=== PATIENT | female | born 1975 | race Caucasian/White ===

== ENCOUNTER 2017-09-05 18:31 | Inpatient (IN) | payer MEDICAID, OTHER, SELFPAY ==
[~2017-09-05 18:31] MED LIST: Dexamethasone 20 MG/5 ML VIAL ONE; Ketorolac Tromethamine 30 MG/ML VIAL ONE; Lidocaine 1% PF 5 ML VIAL ONE; Ondansetron HCl/PF 4 MG/2 ML Vial ONE; Propofol 200 MG/20 ML VIAL ONE; Succinylcholine Chloride 20 MG/ML 10 ml SYRINGE FS ONE; ePHEDrine/0.9% NaCl/PF SYRINGE 50 mg/10 ml ONE
[2017-09-05] MEDS ORDERED: Bupivacaine PF 0.5% 30 ML VIAL ONE (21:17)
[2017-09-05] MEDS ORDERED: Fentanyl 250 MCG/5 ML VIAL ONE (21:20)
[2017-09-05] MEDS ORDERED: Dextrose 50% Abboject 50 ML SYRINGE SLOW IVP PRN (22:35)
[2017-09-05] MEDS ORDERED: HYDROcodone/Acetaminophen 10/325 mg Tablet PO PRN (22:35)
[2017-09-05] MEDS ORDERED: Promethazine HCl 25 MG/ML VIAL IM PRN ×2 (22:35→22:43)
[2017-09-05] MEDS ORDERED: Dextrose 5% in Water 1,000 ML IV PRN (22:35)
[2017-09-05] MEDS ORDERED: Morphine 4 MG/ML Carpuject SLOW IVP PRN (22:35)
[2017-09-05] MEDS ORDERED: hydrALAZINE 20 MG/ML VIAL SLOW IVP PRN (22:35)
[2017-09-05] MEDS ORDERED: Ondansetron HCl/PF 4 MG/2 ML Vial IVP PRN ×2 (22:35→22:43)
[2017-09-05] MEDS ORDERED: Morphine Sulfate 2 MG/ML SYRINGE SLOW IVP PRN (22:43)
[2017-09-05] MEDS ORDERED: Meperidine HCl/PF 25 MG/ML VIAL SLOW IVP PRN (22:43)
[2017-09-05] MEDS ORDERED: HYDROmorphone 2 MG/ML VIAL SLOW IVP PRN (22:43)
[2017-09-05] MEDS ORDERED: Promethazine HCl 25 MG/ML VIAL SLOW IVP PRN (22:43)
[2017-09-05] MEDS ORDERED: HYDROmorphone 0.5 MG/0.5 ML SYRINGE ONE (22:45)
[2017-09-06] MEDS ORDERED: Fentanyl 100 MCG/2 ML VIAL ONE (00:03)
--- NOTE | 2017-09-06 01:06 | HP ---
CHIEF COMPLAINT: Right lower quadrant abdominal pain. HISTORY OF PRESENT ILLNESS: This is 42-year-old female. She reports a 1 week history of generalized abdominal pain, which became much worse last night became right-sided. It was associated with nause a and vomiting. She went to the emergency room in [place], where CT was done, they transferred her to the [facility], her CT showed acute appendicitis. No previous episodes. Her last in nstrual period two weeks ago. PAST MEDICAL HISTORY: Mastocytosis, angioedema, anaphylaxis, thyroid cancer, kidney stones. PAST SURGICAL HISTORY: She has had a total thyroidectomy, lithotripsy complicated by a pneumothorax requiring chest tube. ALLERGIES: She has no known drug allergies. MEDICATIONS: Levothyroxine. 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 Social alcohol. FAMILY HISTORY: Noncontributory. PHYSICAL EXAMINATION: VITAL SIGNS: Temperature 98.7, pulse 72, blood pressure 112/54. GENERAL: Well-developed, well-nourished female in no apparent distress. HEENT: Unremarkable, well-healed surgical scar. LUNGS: Clear. HEART: Regular rate and rhythm. ABDOMEN: Soft, very tender to percussion in right lower quadrant, positive Rovsing's. EXTREMITIES: Unremarkable. LABORATORY DATA: Her white count is 11.6, H and H 8.7 and 30, platelet count 233. HCG negative. CT scan was reviewed with the radiologist, reported to me as acute appendicitis. ASSESSMENT: Acute appendicitis. PLAN: Laparoscopic appendectomy. CONSENT: I have discussed the planned procedure as well as risk of bleeding, infection, injury to he r bowel, bladder, need to open. She understands and gives informed consent.
[2017-09-06] MEDS: D5 1/2 NS w/20 mEq KCL 1,000 ML IV SCH ×2 (01:23→12:59)
[2017-09-06] MEDS: Piperacillin/Tazobactam 3.375 GM in Sodium Chloride 0.9% 100 ML IVPB SCH ×3 (01:23→12:59)
[2017-09-06 01:56] VITALS: BMI 26.2
[2017-09-06] MEDS: HYDROcodone/Acetaminophen 10/325 mg Tablet PO PRN ×2 (03:09→13:03)
[2017-09-06 05:27] LABS: Anion Gap 9 mmol/L (10-20); BUN (Urea Nitrogen) 7 mg/dL (7.0-18.7); Calc. Creatinine Clearance 102 mL/min (70-130); Calcium 7.8 mg/dL (7.8-10.44); Carbon Dioxide 22 mmol/L (22-29); Chloride 108 mmol/L (98-107); Estimated GFR-MDRD 80
[2017-09-06 05:39] LABS: #Lymphocytes 0.3 thou/uL (1.20-3.40); #Monocytes 0.3 thou/uL (0.11-0.59); %Lymphocytes 2.8 % (21.0-51.0); %Monocytes 2.9 % (0.0-10.0); Hematocrit 28.7 % (36.0-47.0); Hypochromia SLIGHT = 6-15 cells (100X) (0-5/hpf); Mean Platelet Volume 10.8 fL (7.4-10.4); Microcytosis MODERATE=15-30 cells (100X) (0-5/hpf); Red Blood Cell (RBC) Count 3.97 mill/uL (4.20-5.40); Target Cells SLIGHT = 2-5 cells (100X) (0-1/hpf); White Blood Cell (WBC) Count 11.7 thou/uL (4.8-10.8)
[2017-09-06] MEDS ORDERED: Morphine PF 1 MG/ML SYR IV PRN (06:26)
[2017-09-06] MEDS ORDERED: Morphine 4 MG/ML VIAL SLOW IVP PRN (06:27)
--- NOTE | 2017-09-06 06:40 | OP ---
PREOPERATIVE DIAGNOSIS: Acute appendicitis. SURGEON: Flash Elias M.D. PROCEDURE PERFORMED: Laparoscopic appendectomy. INDICATIONS: A 42-year-old female with a 1 week history of vague abdominal pain became more right lo wer quadrant over the last 24 hours, associated with nausea, vomiting, leukocytosis. CT scan showed appendicitis. FINDINGS: Acute gangrenous appendicitis stuck to the right ovary. PROCEDURE: After informed consent was obtained, the patient was taken to the operating room and give n general endotracheal anesthesia. She was placed in the supine position. Her abdomen was prepped a nd draped in the usual fashion. Local anesthesia infiltrated subcutaneously and deep and a subumbili ana incision was performed. The subcu divided sharply. The fascia grasped and two stay sutures of 0 Vicryl placed to either side of midline. Midline incised. Digital palpation revealed no local adhe sions. A blunt 10/12 mm trocar inserted. Pneumoperitoneum was created to a pressure of 15 mmHg. A 0 degree laparoscope inserted. Patient placed in Trendelenburg position. Under direct vision, a 5 m m port was placed suprapubic and one on the right lateral abdomen. The appendix was found, the tip w as gangrenous and stuck to the right ovary, it was bluntly dissected away. The mesoappendix divided utilizing the LigaSure. The base of the appendix divided with a 45 mm white load stapler. It was pl aced in an Endosac and removed from the abdomen in the Endosac. Hemostasis was assured. The abdomen thoroughly irrigated and irrigation fluid removed. Trocars and retractors were removed. The fascia closed with interrupted 0 Vicryl suture. The skin closed with interrupted 4-0 Rapide. Dermabond ap plied. Patient tolerated the procedure well and transferred to recovery in good condition. Sponge a nd needle count verified correct x2.
[2017-09-06 08:26] VITALS: TEMP 97.4
[2017-09-06] MEDS ORDERED: FLU VACC QS2017-18 36 mo. & older 0.5 ML SYRINGE IM ONE (09:00)
[2017-09-06] MEDS ORDERED: Famotidine/PF 20 mg/2ml Vial SLOW IVP SCH (09:00)
[2017-09-06] MEDS ORDERED: Enoxaparin Sodium 40 MG/0.4 ML SYRINGE SC SCH (09:00)
[2017-09-06] MEDS ORDERED: Famotidine 20 MG TAB PO SCH (09:00)
[2017-09-06 12:45] VITALS: BP 108/67
--- NOTE | 2017-09-06 13:52 | DIS ---
DATE OF ADMISSION: 09/06/2017 DATE OF DISCHARGE: 09/06/2017 DISCHARGE DIAGNOSIS: Acute gangrenous appendicitis. PROCEDURES DURING ADMISSION: Laparoscopic appendectomy. HOSPITAL COURSE: The patient was admitted. She was taken to the operating room where she underwent a laparoscopic appendectomy. She was found to have a gangrenous appendix attached to her right ovary . Postoperatively, she has done well. Pain is controlled on p.o. medications. She is tolerating di et. She is discharged home in good condition on doxycycline and [place]. She will follow up with me sylwia haney 2 weeks.
== END 2017-09-06 13:39 | disposition home or self-care (01) | DRG 343 ==
LOC: ERS 18:31 → 2SW 20:21 → SDC/OP 20:29 → 2SW 09-06 01:01
PROVIDERS: ADMIT Surgery; ATTEND Surgery
PROC: 0DTJ4ZZ Resection of Appendix, Percutaneous Endoscopic Approach (ICD-10-PCS; principal; 2017-09-05)
DX: K35.80 Unspecified acute appendicitis (principal); F17.210 Nicotine dependence, cigarettes, uncomplicated; Z85.850 Personal history of malignant neoplasm of thyroid; Z23 Encounter for immunization
CPT/HCPCS: 36415; 36416; 80048; 85025; 88304; 90471; 90682; 90732; 99285; G0008; G0009; J1100; J1170; J1650; J1885; J2001; J2274; J2405; J2543; J2704; J3010; J7050; Q2036; S0020